=== PATIENT | male | born 1980 | race Caucasian/White ===

== ENCOUNTER 2021-10-19 02:58 | Emergency (ER) | payer OTHER ==
[~2021-10-19] VITALS: Ht 185.4 cm; Wt 127.0 kg
--- NOTE | 2021-10-19 03:21 | NUR ---
BIBWIFE C/O SHOULDER PAIN STARTED IN THE MORNING, AFTER WORK, RIGHT SIDE CHEST PAIN. TOOK IBUPROFEN AND MUSCLE RELAXANT MED AROUND 5 PM WITH NO RELIEF. PT A/OX4. TOLERATING R/A WELL WITH NO SOB. CONNECTED PT TO POX AND MONITOR.
[2021-10-19 03:55] LABS: BASOPHILS % (AUTO) 0.4 % (0.0-2.0); EOSINOPHILS % (AUTO) 2.6 % (0.0-6.0); HEMATOCRIT 45 % (39-51); HEMOGLOBIN 15.1 g/dL (13.5-17.5); LYMPHOCYTES # (AUTO) 2.5 K/uL (0.8-4.8); LYMPHOCYTES % (AUTO) 42.2 % (20.0-44.0); MEAN CORPUSCULAR HGB CONC 34 g/dl (31.0-36.0); MEAN CORPUSCULAR VOLUME 87 fL (80-96); MONOCYTES # (AUTO) 0.5 K/uL (0.1-1.30); MONOCYTES % (AUTO) 8.9 % (2.0-12.0); NEUTROPHILS # (AUTO) 2.7 K/uL (1.8-8.9); NEUTROPHILS % (AUTO) 45.9 % (43.0-81.0); PLATELET COUNT (AUTO) 186 K/uL (150-450); RED BLOOD CELL COUNT(AUTO) 5.15 MIL/uL (4.5-6.0); WHITE BLOOD COUNT (AUTO) 5.9 K/uL (4.3-11.0)
--- NOTE | 2021-10-19 04:03 | NUR ---
[employer] MACHINE TENDER AT PT'S BEDSIDE
--- NOTE | 2021-10-19 04:11 | NUR ---
CALLED LAB FOR RESULT OF CHEM, STILL WORKING ON RELEASE.
[2021-10-19 04:54] LABS: CARBON DIOXIDE 26 mmol/L (21-32); CHLORIDE 106 mmol/L (98-107); POTASSIUM 3.9 mmol/L (3.5-5.1); SODIUM SERUM 138 mmol/L (136-145)
[2021-10-19 04:55] LABS: CALCIUM, SERUM 8.5 mg/dL (8.5-10.1); GLUCOSE 117 mg/dL (74-106); UREA NITROGEN, BLOOD 31 mg/dL (7-18)
[2021-10-19 04:56] LABS: CREATININE 1.2 mg/dL (0.6-1.3)
[2021-10-19 06:10] LABS: D-DIMER 0.19 mg/L(FEU (0.17-0.50)
[2021-10-19] MEDS ORDERED: IBUP-1957 PO (07:12)
--- NOTE | 2021-10-19 07:15 | NUR ---
Patient discharged to home in stable condition. Written and verbal after care instructions given. Patient verbalizes understanding of instruction. IV line removed and PT ambulated out of er with steady gait.
[2021-10-19 07:16] VITALS: BP 111/70
== END 2021-10-19 07:16 | disposition home or self-care (01) ==
LOC: ER 03:18
DX: R07.89 Other chest pain (principal); E78.00 Pure hypercholesterolemia, unspecified; Z60.2 Problems related to living alone
CPT/HCPCS: 36415; 71045-TC; 80048-TC; 84484-TC; 85025-TC; 85378-TC; 85730-TC